=== PATIENT | female | born 1985 | race Caucasian/White ===

== ENCOUNTER 2022-09-09 21:31 | Emergency (ER) | payer MEDICARE, MEDICAID ==
[~2022-09-09] VITALS: Ht 170.2 cm; Wt 63.6 kg
[2022-09-09] MEDS ORDERED: levETIRAcetam 500 MG/5ML INJ IV ONE (22:56)
[2022-09-09 23:15] LABS: Urine Bacteria FEW /hpf (None Seen); Urine Blood 1+ /uL (Negative); Urine Mucus FEW (None Seen); Urine Specific Gravity 1.024 (1.001-1.035); Urine WBC 36 /hpf (0 - 5)
[2022-09-09 23:50] LABS: Basophils # (auto) 0 10 ^3/uL (0-0.2); Hemoglobin 8.3 g/dL (12.2-16.2); White Blood Cell 4.3 10^3/uL (4.4-10.8)
[2022-09-09 23:53] LABS: Albumin 2.6 g/dL (3.4-5.0); BUN/Creatinine Ratio 19.2; Basophils % (auto) 0.5 % (0.0-2.0); Calcium 8.1 mg/dL (8.5-10.1); Eosinophils # (auto) 0 10 ^3/uL (0-0.8); Eosinophils % (auto) 0.4 % (0.0-7.0); Hematocrit 27.1 % (36.0-46.0); Lymphocytes # (auto) 0.9 10 ^3/uL (0.4-5.4); Lymphocytes % (auto) 20.6 % (10.0-50.0); Mean Corpuscular Hemoglobin 20.7 pg (28.0-32.0); Mean Corpuscular Hgb Conc. 30.7 g/dL (32.0-36.0); Mean Corpuscular Volume 67.4 fL (80.0-100.0); Monocytes # (auto) 0.7 10 ^3/uL (0-1.3); Monocytes % (auto) 15.2 % (0.0-12.0); Neutrophils # (auto) 2.7 10 ^3/uL (1.6-8.6); Neutrophils % (auto) 63.3 % (37.0-80.0); Potassium 3.9 mmol/L (3.5-5.1); Red Blood Cells 4.03 10^6/uL (4.0-5.20); Red Cell Distribution Width 18.1 % (11.8-14.3)
[2022-09-09 23:56] LABS: Bilirubin, Total 0.2 mg/dL (0.2-1.0); Total Protein 6.1 g/dL (6.4-8.2)
[2022-09-10] MEDS ORDERED: cefTRIAXone SOD 1,000 MG VL IM ONE (00:30)
[2022-09-10 01:34] VITALS: BP 131/76
[2022-09-10] MEDS ORDERED: NITR-87 PO (01:34)
== END 2022-09-10 02:03 | disposition home or self-care (01) ==
LOC: ER 21:31
DX: R56.9 Unspecified convulsions (principal); N39.0 Urinary tract infection, site not specified; Z88.0 Allergy status to penicillin
CPT/HCPCS: 36415; 70450; 71045; 72125; 80053; 81001; 84484; 85025; 93005; 96365; 99285; J1953; J7060